=== PATIENT | male | born 1985 | race Caucasian/White ===

== ENCOUNTER 2020-08-08 07:53 | Emergency (ER) | payer OTHER ==
[~2020-08-08 07:53] MED LIST: AMOXICILLIN875 MG PO
[2020-08-08 08:36] LABS: HEMOGLOBIN 17.1 gm/dl (14.0-17.5); RED BLOOD COUNT 5.23 M/UL (4.20-5.50); WHITE BLOOD COUNT 5.9 K/UL (4.5-11.0)
[2020-08-08 08:57] LABS: BUN/CREATININE RATIO 17 (0-10)
[2020-08-08] MEDS ORDERED: HYDROCODON-ACE1 EAC2 PO ×2 (10:48→11:37)
[2020-08-08] MEDS ORDERED: BACTROBAN OINT22 GM EXT (11:41)
== END 2020-08-08 12:38 | disposition home or self-care (01) ==
LOC: ER1 07:53
PROVIDERS: Emergency Medicine
DX: S06.0X9A Concussion with loss of consciousness of unspecified duration, initial encounter (principal); S13.4XXA Sprain of ligaments of cervical spine, initial encounter; S20.212A Contusion of left front wall of thorax, initial encounter; S30.1XXA Contusion of abdominal wall, initial encounter; S80.02XA Contusion of left knee, initial encounter; S00.81XA Abrasion of other part of head, initial encounter; M51.25 Other intervertebral disc displacement, thoracolumbar region; E87.6 Hypokalemia; V48.5XXA Car driver injured in noncollision transport accident in traffic accident, initial encounter; Y92.410 Unspecified street and highway as the place of occurrence of the external cause
CPT/HCPCS: 70450; 71260; 72125; 72128; 72131; 73564; 80053; 81001; 82550; 82553; 83874; 84484; 85025; 93005; 99285; J7030; Q9967

== ENCOUNTER 2021-06-28 15:32 | Emergency (ER) | payer OTHER, BC ==
[~2021-06-28 15:32] MED LIST changes: +BACTROBAN OINT22 GM EXT; +HYDROCODON-ACE1 EAC2 PO
[2021-06-28 17:55] LABS: HEMOGLOBIN 16.3 gm/dl (14.0-17.5); RED BLOOD COUNT 4.89 M/UL (4.20-5.50); WHITE BLOOD COUNT 7.1 K/UL (4.5-11.0)
[2021-06-28 18:27] LABS: BUN/CREATININE RATIO 14 (0-10)
[2021-06-28] MEDS ORDERED: CYCLOBENZAPRINE10 MG PO (20:57)
[2021-06-28] MEDS ORDERED: NAPROSYN500 MG PO (20:57)
== END 2021-06-28 21:15 | disposition home or self-care (01) ==
LOC: ER1 15:32
PROVIDERS: Physician Assistant
DX: S16.1XXA Strain of muscle, fascia and tendon at neck level, initial encounter (principal); S29.012A Strain of muscle and tendon of back wall of thorax, initial encounter; S50.01XA Contusion of right elbow, initial encounter; S80.01XA Contusion of right knee, initial encounter; S40.011A Contusion of right shoulder, initial encounter; S39.91XA Unspecified injury of abdomen, initial encounter; S29.9XXA Unspecified injury of thorax, initial encounter; R10.811 Right upper quadrant abdominal tenderness; V49.40XA Driver injured in collision with unspecified motor vehicles in traffic accident, initial encounter
CPT/HCPCS: 71260; 72070; 72125; 73030; 73080; 73564; 80053; 81001; 83690; 85025; 99284; Q9967

== ENCOUNTER → 2021-09-14 | Outpatient (CLI) | payer BC ==
[~2021-09-14] MED LIST changes: +CYCLOBENZAPRINE10 MG PO; +NAPROSYN500 MG PO
== END ==
LOC: KOH-I 09:59
DX: E04.1 Nontoxic single thyroid nodule (principal)
CPT/HCPCS: 76536